=== PATIENT | female | born 1995 | race Hispanic/Latino ===

== ENCOUNTER 2022-01-16 16:29 | Emergency (ER) | payer MEDICAID ==
[~2022-01-16] VITALS: Ht 160 cm; Wt 87.1 kg
[2022-01-16] MEDS ORDERED: ACETAMINOPHEN 500 MG TABLET PO ONE (18:30)
[2022-01-16] MEDS ORDERED: GUAIFENESIN-DM 200/20 MG 10 ML PO ONE (18:30)
[2022-01-16] MEDS ORDERED: OSELTAMIVIR PHOSPHATE 75 MG CAP PO SCH (18:30)
[2022-01-16] MEDS ORDERED: OSEL75 PO (18:36)
[2022-01-16] MEDS ORDERED: IBUP-2071 PO (18:36)
[2022-01-16] MEDS ORDERED: D-ME1POW16 PO (18:36)
[2022-01-16 18:47] VITALS: BP 124/65
== END 2022-01-16 18:54 | disposition home or self-care (01) ==
LOC: EDH 16:29
DX: J10.1 Influenza due to other identified influenza virus with other respiratory manifestations (principal); Z20.822 Contact with and (suspected) exposure to COVID-19; J45.909 Unspecified asthma, uncomplicated; Z79.899 Other long term (current) drug therapy
CPT/HCPCS: 99284; 87635; 87804 ×2; C9803